=== PATIENT | female | born 1995 | race Hispanic/Latino ===

== ENCOUNTER 2020-01-31 07:14 | Inpatient (IN) | payer OTHER ==
--- NOTE | 2020-01-31 09:31 | PR ---
[facility] [address] [facility] [place] [address] Signed Progress Notes IP Datetime Report Generated by CPN: 01/31/2020 09:31 PROGRESS NOTES: [id number] VITAL SIGNS: [id number] Vital Signs: Reviewed VS Notable Details: mild HTN EXAM: [id number] Dilatation: 2.0 Effacement: 80 Station: -2 Contractions: q 2 to 9 min MEMBRANES: [id number] Comments: Addendum to admit note: Pt was hospitalized at [facility] and had cardiac ECHO as well as Doppler of RLE which were normal. She signed out AMA at [facility]. FETUS A: [id number] FHR Baseline: 140 Variability: Moderate 6-25bpm Accelerations: 15X15 Decelerations: None FHR Category: Category I Presentation: Vertex Comments on Fetus A: No evidence of metabolic acidosis FETUS B: [id number] Signing Physician: Nancy Spaulding MD Copies: ~ *Electronically Signed* 01/31/20930 NANCY SPAULDING MD PATIENT NAME: KEYONA VENTURA PROGRESS NOTE DATE OF : [birth year] PHYSICIAN: NANCY SPAULDING MD RPT #: [id number] REPORT IS CONFIDENTIAL AND NOT TO BE RELEASED WITHOUT AUTHORIZATION
--- NOTE | 2020-01-31 09:59 | PR ---
[facility] [address] [place], [place] [address] Signed Progress Notes IP Datetime Report Generated by DANNY: 01/31/2020 09:59 PROGRESS NOTES: [id number] Impression: Normal Progression of Labor; Reassuring Heart Rate Procedures: Artificial ROM; Sterile Vag Exam Plan: Continue Present Management VITAL SIGNS: [id number] Vital Signs: Reviewed VS Notable Details: mild HTN EXAM: [id number] Dilatation: 3.0 Effacement: 95 Station: -2 Contractions: q 2 to 9 min MEMBRANES: [id number] Comments: Progressing. Suspect was in early labor anyway at her admit. FETUS A: [id number] FHR Baseline: 140 Variability: Moderate 6-25bpm Accelerations: 15X15 Decelerations: None FHR Category: Category I Presentation: Vertex Comments on Fetus A: No evidence of metabolic acidosis FETUS B: [id number] Signing Physician: Nancy Spaulding MD Copies: ~ *Electronically Signed* 01/31/20 0959 NANCY SPAULDING MD PATIENT NAME: KEYONA VENTURA PROGRESS NOTE DATE OF : 97 PHYSICIAN: NANCY SPAULDING MD RPT #: [id number] REPORT IS CONFIDENTIAL AND NOT TO BE RELEASED WITHOUT AUTHORIZATION
--- NOTE | 2020-02-01 02:13 | PR ---
[facility] [address] [facility] [place], [place] [address] Signed PP Progress Notes Datetime Report Generated by DANNY: 02/01/2020 02:13 SUBJECTIVE: [id number] Pain: Abnormal Pain Comments: intermittent severe back pain Nausea/Vomiting Comments: heavy pp bleeding Vital Signs: [id number] Vital Signs: Reviewed Notable Details: mild HTN, intermittent tachycardia Abdomen/Uterus: Abnormal Lochia: Abnormal Vulva/Perineum: Abnormal Exam Comments: Uterus explored and removed approx 725 cc of clot bringing total to approx 1800 cc of measured blood loss since delivery Vulva very edematous H/H 8.3/24.6, WBC 16.4, plat 251k Fibrinogen 365 PT/PTT IMPRESSION/PLAN/PROCEDURES: [id number] Other Impression: pp hemorrhage Progress Notes: Pt with intermittent heavy bleeding since delivery. Has received PO Cytotec 800 mg, IV pit, IV TXA with continued intermittent passage of clots. When I arrived, the uterus was explored with removal of approx 725 cc of clot and the uterus firmed up immediately. She received IM Hemabate at that time as well. Since then, her bleeding has been significantly less. Repeat exploration xs 2 was done with approx 75 cc of blood removed. She received Fentanyl 100 mcg with the first exploration for pain control. She then became very sleepy and O2 sats dropped requiring O2 by mask with immediate improvement. Bleeding has improved significantly though I suspect she will require transfusion given her blood loss. She is otherwise stable at this time. If her bleeding increases again, will go to the OR for D_C and other necessary procedures. Signing Physician: Nancy Spaulding MD Copies: ~ *Electronically Signed* 02/01/20 0213 NANCY SPAULDING MD PATIENT NAME: KEYONA VENTURA PROGRESS NOTE DATE OF : 97 PHYSICIAN: NANCY SPAULDING MD RPT #: [id number] REPORT IS CONFIDENTIAL AND NOT TO BE RELEASED WITHOUT AUTHORIZATION
--- NOTE | 2020-02-01 08:05 | PR ---
[facility] [address] [place], [place] [address] Signed PP Progress Notes Datetime Report Generated by DANNY: 02/01/2020 08:05 SUBJECTIVE: [id number] Pain: Within Normal Limits Pain Comments: intermittent severe back pain Nausea/Vomiting: Denies Nausea/Vomiting Comments: heavy pp bleeding Bowel Movement: Yes Vital Signs: [id number] Vital Signs: Reviewed Notable Details: occ mild HTN Cardiovascular: Normal Respiratory: Normal Abdomen/Uterus: Abnormal Lochia: Normal Vulva/Perineum: Abnormal Breasts: Not Done CVA Tenderness: Not Done Extremities: Abnormal Incision: Not Applicable Progress: Abnormal Exam Comments: Fundus firm, NT @ U-2. Vulva with moderate edema. Extremities--continued pitting edema 2+ but much improved. Erythematous area smaller on each lower leg. No calf tenderness. H/H 8.6/25.9, WBC 18.2 S81/B4, plat 302k Na 135, K+ 3.8, Cl 103, CO2 23, BUN/Cr 11/0.55, Glu 96 IMPRESSION/PLAN/PROCEDURES: [id number] Other Impression: pp hemorrhage Progress Notes: PP Hemorrhage--bleeding under control and H/H remain stable LE Cellulitis--improving. Continue IV clindamycin DVT risk--remains high. Continue SCDs and subQ heparin Preeclampsia w/o severe features--BP improving Will begin a trial of ambulation and remove Ferrera if this is tolerated Recheck CBC in am Continue IV antibiotics *Electronically Signed* 02/01/20 0805 NOLE SPAULDING MD PATIENT NAME: KEYONA VENTURA PROGRESS NOTE DATE OF : 97 PHYSICIAN: NOEL SPAULDING MD RPT #: [id number] REPORT IS CONFIDENTIAL AND NOT TO BE RELEASED WITHOUT AUTHORIZATION [address] [place], [place] [address] Signed Signing Physician: Noel Spaulding MD Copies: ~ *Electronically Signed* 02/01/20 0805 NOEL SPAULDING MD PATIENT NAME: KEYONA VENTURA PROGRESS NOTE DATE OF : 97 PHYSICIAN: NOEL SPAULDING MD RPT #: [id number] REPORT IS CONFIDENTIAL AND NOT TO BE RELEASED WITHOUT AUTHORIZATION
--- NOTE | 2020-02-02 10:20 | PR ---
[facility] [address] [place], [place] [address] Signed PP Progress Notes Datetime Report Generated by DANNY: 02/02/2020 10:20 SUBJECTIVE: [id number] Pain: Within Normal Limits Pain Comments: intermittent severe back pain Nausea/Vomiting: Denies Nausea/Vomiting Comments: heavy pp bleeding Bowel Movement: Yes Vital Signs: [id number] Vital Signs: Reviewed; Within Normal Limits Notable Details: occ mild HTN EXAM: Ongoing Cardiovascular: Normal Respiratory: Not Done Abdomen/Uterus: Abnormal Lochia: Normal Vulva/Perineum: Not Done Breasts: Not Done CVA Tenderness: Not Done Extremities: Abnormal Incision: Not Applicable Progress: Normal Exam Comments: Fundus firm, NT @ U-2. Ext with 2+ edema, decreased erythema LE H/H 6/17.9, WBC 12.5, plat 239k S 75/L 16.4 IMPRESSION/PLAN/PROCEDURES: [id number] Other Impression: pp hemorrhage Progress Notes: Preeclampsia w/o severe features--BPs improving though still very significant edema. She is diuresing. Continue SCDs, avoid sitting, continue Is _ Os Anemia--much worse today though bleeding has been minimal since initial hemorrhage. She has tolerated ambulation but with significant tachycardia. Consent for tx 1 unit PRBCs now and will recheck labs later and in am Cellulitis--redness much improved. Will switch to po antibiotics. Signing Physician: Nancy Spaulding MD *Electronically Signed* 02/02/20 1020 NANCY SPAULDING MD PATIENT NAME: KEYONA VENTURA PROGRESS NOTE DATE OF : 97 PHYSICIAN: NANCY SPAULDING MD RPT #: [id number] REPORT IS CONFIDENTIAL AND NOT TO BE RELEASED WITHOUT AUTHORIZATION [facility] [address] [place] [id number] Signed Copies: ~ *Electronically Signed* 02/02/20 1020 NANCY SPAULDING MD PATIENT NAME: KEYONA VENTURA PROGRESS NOTE DATE OF : 97 PHYSICIAN: NANCY SPAULDING MD RPT #: [id number] REPORT IS CONFIDENTIAL AND NOT TO BE RELEASED WITHOUT AUTHORIZATION
--- NOTE | 2020-02-03 09:03 | PR ---
[facility] [address] [place], [place] [address] Signed PP Progress Notes Datetime Report Generated by DANNY: 02/03/2020 09:03 SUBJECTIVE: [id number] Pain: Within Normal Limits Pain Comments: Feeling much better Nausea/Vomiting: Denies Nausea/Vomiting Comments: heavy pp bleeding Bowel Movement: Yes Vital Signs: [id number] Vital Signs: Reviewed; Within Normal Limits Notable Details: occ mild HTN EXAM: Ongoing Cardiovascular: Not Done Respiratory: Not Done Abdomen/Uterus: Abnormal Lochia: Normal Vulva/Perineum: Not Done Breasts: Not Done CVA Tenderness: Not Done Extremities: Abnormal Incision: Not Applicable Progress: Normal Exam Comments: Fundus firm, NT @ U-1. Ext with 2+ edema, min erythema RLE. H/H 7.2/21.5, WBC 15.7, plat 274k last pm H/H 7.1/21.2, WBC 11.1, plat 266k this am IMPRESSION/PLAN/PROCEDURES: [id number] Other Impression: pp hemorrhage Progress Notes: Preeclampsia w/o severe features--BPs normal at this time Edema--still significant though pt more comfortable Cellulitis--improving on antibiotics Anemia--improved after transfusion Signing Physician: Nancy Spaulding MD Copies: *Electronically Signed* 02/03/20 0903 NANCY SPAULDING MD PATIENT NAME: KEYONA VENTURA PROGRESS NOTE DATE OF : 97 PHYSICIAN: NANCY SPAULDING MD RPT #: [id number] REPORT IS CONFIDENTIAL AND NOT TO BE RELEASED WITHOUT AUTHORIZATION [address], [place] [address] Signed ~ *Electronically Signed* 02/03/20 09 NANCY SPAULDING MD PATIENT NAME: KEYONA VENTURA PROGRESS NOTE DATE OF : 97 PHYSICIAN: NANCY SPAULDING MD RPT #: [id number] REPORT IS CONFIDENTIAL AND NOT TO BE RELEASED WITHOUT AUTHORIZATION
== END 2020-02-03 13:10 | disposition home or self-care (01) | DRG 806 ==
LOC: FBCO 07:14 → FBC 09:20
PROVIDERS: ADMIT Obstetrics & Gynecology; ATTEND Obstetrics & Gynecology
PROC: 10E0XZZ Delivery of Products of Conception, External Approach (ICD-10-PCS; principal; 2020-01-31)
PROC: 0KQM0ZZ Repair Perineum Muscle, Open Approach (ICD-10-PCS; 2020-01-31)
PROC: 10907ZC Drainage of Amniotic Fluid, Therapeutic from Products of Conception, Via Natural or Artificial Opening (ICD-10-PCS; 2020-01-31)
PROC: 00HU33Z Insertion of Infusion Device into Spinal Canal, Percutaneous Approach (ICD-10-PCS; 2020-01-31)
PROC: 3E0R3BZ Introduction of Anesthetic Agent into Spinal Canal, Percutaneous Approach (ICD-10-PCS; 2020-01-31)
PROC: 10D07Z8 Extraction of Products of Conception, Other, Via Natural or Artificial Opening (ICD-10-PCS; 2020-02-01)
PROC: 30233N1 Transfusion of Nonautologous Red Blood Cells into Peripheral Vein, Percutaneous Approach (ICD-10-PCS; 2020-02-02)
DX: O14.04 Mild to moderate pre-eclampsia, complicating childbirth (principal); L03.115 Cellulitis of right lower limb; Z37.0 Single live birth; Z3A.38 38 weeks gestation of pregnancy; O99.72 Diseases of the skin and subcutaneous tissue complicating childbirth; O70.1 Second degree perineal laceration during delivery; O26.86 Pruritic urticarial papules and plaques of pregnancy (PUPPP); O72.1 Other immediate postpartum hemorrhage; O28.2 Abnormal cytological finding on antenatal screening of mother; O99.324 Drug use complicating childbirth; F15.11 Other stimulant abuse, in remission; F11.11 Opioid abuse, in remission; O90.81 Anemia of the puerperium; D64.9 Anemia, unspecified; O77.0 Labor and delivery complicated by meconium in amniotic fluid
CPT/HCPCS: 36415; 80053; 82565; 82570; 84156; 84450; 84520; 84550; 85025; 85027; 85384; 85610; 85730; 86850; 86900; 86901; 86920; A9270; J1644; J2590; J2795; J3010; J3490; J7121